=== PATIENT | female | born 1980 | race Caucasian/White ===

== ENCOUNTER 2016-12-10 17:38 | Emergency (ER) | payer MEDICAID ==
[2016-12-10 17:50] VITALS: TEMP 98.4
--- NOTE | 2016-12-10 18:22 | EDPHY ---
H & P Stated Complaint: heavy metal hinge fell down from door impacting l side of fave /lac/no loc Time Seen by Provider: 12/10/16 18:21 HPI/ROS: HPI CHIEF COMPLAINT: [ ] HISTORY OF PRESENT ILLNESS: [Need 4: Location, Duration, Severity, Quality, Context, Timing Modifying Factors, Associated S&S] Past Medical History: Past Surgical History: Social History: Family History: ROS REVIEW OF SYSTEMS: A comprehensive 10 point review of systems is otherwise negative aside from elements mentioned in the history of present illness. Exam Constitutional triage nursing summary reviewed, vital signs reviewed, awake/ alert. Eyes normal conjunctivae and sclera, EOMI, PERRLA. HENT normal inspection, atraumatic, moist mucus membranes, no epistaxis, neck supple/ no meningismus, no raccoon eyes. Respiratory clear to auscultation bilaterally, normal breath sounds, no respiratory distress, no wheezing. Cardiovascular rate normal, regular rhythm, no murmur, no edema, distal pulses normal. Gastrointestinal soft, non-tender, no rebound, no guarding, normal bowel sounds, no distension, no pulsatile mass. Genitourinary no CVA tenderness. Musculoskeletal no midline vertebral tenderness, full range of motion, no calf swelling, no tenderness of extremities, no meningismus, good pulses, neurovascularly intact. Skin pink, warm, & dry, no rash, skin atraumatic. Neurologic awake, alert and oriented x 3, AAOx3, moves all 4 extremities equally, motor intact, sensory intact, CN II-XII intact, normal cerebellar, normal vision, normal speech. Psychiatric normal mood/affect. Heme/Lymph/Immune no lymphadenopathy. Differential Diagnosis: Medical Decision Making: Re-evaluation: Source: Patient - Personal History LMP (Females 10-55): 22-28 Days Ago Current Tetanus/Diphtheria Vaccine: Yes - Medical/Surgical History Hx Asthma: No Hx Chronic Respiratory Disease: No Hx Diabetes: No Hx Cardiac Disease: No Hx Renal Disease: No Hx Cirrhosis: No Hx Alcoholism: No Hx HIV/AIDS: No Hx Splenectomy or Spleen Trauma: No Other PMH: leap procedure/oral surgery - Social History Smoking Status: Never smoked Constitutional: Initial Vital Signs Temperature (C) 36.9 C 12/10/16 17:46 Heart Rate 80 12/10/16 17:46 Respiratory Rate 20 12/10/16 17:46 Blood Pressure 101/68 12/10/16 17:46 O2 Sat (%) 97 12/10/16 17:46 O2 Delivery Mode Room Air Allergies/Adverse Reactions: Penicillins Allergy (Verified 12/10/16 17:45) Home Medications: Medication Instructions Recorded NK [No Known Home Meds] 12/10/16 Departure - Departure Referrals: NONE *PRIMARY CARE P,. [Primary Care Provider] - As per Instructions
--- NOTE | 2016-12-10 18:30 | EDPHY ---
H & P Stated Complaint: heavy metal hinge fell down from door impacting l side of fave /lac/no loc - Personal History LMP (Females 10-55): 22-28 Days Ago Current Tetanus/Diphtheria Vaccine: Yes - Medical/Surgical History Hx Asthma: No Hx Chronic Respiratory Disease: No Hx Diabetes: No Hx Cardiac Disease: No Hx Renal Disease: No Hx Cirrhosis: No Hx Alcoholism: No Hx HIV/AIDS: No Hx Splenectomy or Spleen Trauma: No Other PMH: leap procedure/oral surgery - Social History Smoking Status: Never smoked Time Seen by Provider: 12/10/16 18:21 HPI/ROS: CHIEF COMPLAINT: Head trauma HISTORY OF PRESENT ILLNESS: This patient is a 36 year old female who presents to the Emergency Department with trauma to her left forehead caused by a hydraulic door hinge falling and hitting her head approximately two hours prior to arrival. She states that she walked through the door when the hinge became loose, hitting her just above her left eyebrow, lacerating the skin. Denies LOC at the time of the event. She used "crazy glue" on the laceration to attempt to stop the bleeding, which she reports was effective. Upon arrival, she complains of feeling "out of it" since the injury. She has blurred vision. She also complains of mild left shoulder pain. She denies numbness, weakness, or severe headache. No pertinent medical history. REVIEW OF SYSTEMS: Aside from elements discussed in the HPI, a comprehensive 10-point review of systems was reviewed and is negative. PAST MEDICAL HISTORY: Denies. 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 Lives with her three children, oldest age 13. PHYSICAL EXAM: VITAL SIGNS: Reviewed by me; see NN. GENERAL: Well-developed, well-nourished, in no acute distress. HEENT: Head: Normocephalic; 1cm linear laceration just lateral to the left eye that has been glued, no bleeding. PERRL, EOMI, no nystagmus. Oropharynx: No trauma, normal occlusion. Neck: Nontender to palpation, no pain with range of motion, no adenopathy. CHEST: Nontender, no subcutaneous air palpable. LUNGS: Clear to auscultation bilaterally, breath sounds are equal. CARDIAC: Regular rate and rhythm, no rubs, murmurs or gallops. ABDOMEN: Soft, nontender, nondistended, bowel sounds normal. BACK: No CVA tenderness, no spinal tenderness. Tenderness to medial edge of left scapula, no abrasion. EXTREMITIES: No trauma noted, normal range of motion. NEURO: Alert and oriented, cranial nerves II through XII are intact. Motor strength 5 over 5 in all major muscle groups. Sensation intact to light touch. Normal gait. SKIN: Warm and dry, no rash. Portions of this note were transcribed by a behavioral medical director. I personally performed a history, physical exam, medical decision making, and confirmed accuracy of information the transcribed note. (Flor Mario) Constitutional: Initial Vital Signs Temperature (C) 36.9 C 12/10/16 17:46 Heart Rate 80 12/10/16 17:46 Respiratory Rate 20 12/10/16 17:46 Blood Pressure 101/68 12/10/16 17:46 O2 Sat (%) 97 12/10/16 17:46 O2 Delivery Mode Room Air Allergies/Adverse Reactions: Penicillins Allergy (Verified 12/10/16 17:45) Home Medications: Medication Instructions Recorded NK [No Known Home Meds] 12/10/16 Medical Decision Making Procedures: Laceration repair. Verbal consent was obtained from the patient. The 2.5 cm laceration on the left eyebrow was anesthetized using 1% lidocaine with epinephrine. The wound was irrigated with saline, draped and explored to its base with a gloved finger. There were no deep structures involved. The wound was repaired with 6 0 Prolene, 6 sutures. The wound repair was simple. The procedure was performed by myself. (Daily Cristina) ED Course/Re-evaluation: This normally healthy 36-year-old female presents following trauma to her left forehead with a small 1cm laceration glued by herself. She reports mild brain fog but otherwise declines focal neurological deficits. Her neuro exam is benign. GCS 15, no LOC at time of event. Given this, I discussed my recommendation that we do not proceed with CT imaging at this time. The patient is agreeable to this. Laceration repaired by Daily CAMPBELL (see separate procedure note). Follow repaired laceration was asked to see the patient again. She complains of increasing pain in the left posterior shoulder. On examination the patient has developed spasm of the trapezius on the left. She continues to have full range of motion at the shoulder. There is no bony abnormalities palpated. She does have tenderness and significant spasm over the left trapezius muscles. Patient was given ice pack and advised to use ibuprofen regularly. I do not believe she needs any further imaging studies. She otherwise looks well. I discussed closed head injury precautions with her, to which she expresses agreement and understanding. She will be discharged home in good condition. ( Flor Mario) Differential Diagnosis: Differential diagnosis for the patient's injury was considered including but not limited to head injury, sprain, contusion, abrasion, laceration, fracture, open fracture, or dislocation. (Flor Mario) - Data Points Medications Given: Discontinued Medications Hydrocodone Bitart/Acetaminophen ([place] 5/325mg Prepack#6) 1 btl TAKEHOME EDNOW ONE Stop: 12/10/16 21:04 Last Admin: 12/10/16 21:04 Dose: 1 btl Ondansetron HCl (Zofran Odt) 4 mg PO EDNOW ONE Stop: 12/10/16 19:29 Last Admin: 12/10/16 19:31 Dose: 4 mg Departure - Departure Disposition: Home, Routine, Self-Care Clinical Impression: Closed head injury Qualifiers: Encounter type: initial encounter Qualified Code(s): S09.90XA - Unspecified injury of head, initial encounter Forehead laceration Qualifiers: Encounter type: initial encounter Qualified Code(s): S01.81XA - Laceration without foreign body of other part of head, initial encounter Condition: Good Instructions: Care For Your Stitches (ED), Laceration (ED), Concussion (ED), Head Injury (ED), Post Concussion Syndrome (ED) Additional Instructions: 1. You been given closed-head injury instructions. You should stay with a responsible individual for the next 24 hours. Please return to the emergency department if you have any concerns regarding worsening head injury symptoms. 2. Follow-up with your primary care provider next week if you continue to have post concussive symptoms. If you do not have a regular PCP, we have referred you to our on-call provider. 3. Return to the Emergency Department to have your sutures removed in 5 days. Keep wound clean and dry. Clean suture line with a mixture of hydrogen peroxide and water. Apply a thin layer of antibiotic cream. Dress wound if desired. Suture removal in 5 days. Watch for signs of infection. No soaking wound in water. Showers are ok. No swimming until sutures are removed. 4. Return to the Emergency Department immediately if you experience one-sided weakness or numbness, severe headache, confusion, dizziness, vomiting, or other serious concerns. Referrals: Gregorio Mckeon MD [Medical Doctor] - As per Instructions
[2016-12-10] MEDS ORDERED: ONDANSETRON DISINTEGRATING 4 MG TAB PO ONE (19:28)
[2016-12-10] MEDS ORDERED: HYDROCOD/APAP 5/325 PREPACK#6 BTL TAKEHOME ONE ×2 (20:53→21:03)
[2016-12-10 21:03] VITALS: BP 108/66; PULSE 78; RESP 18; O2SAT 96
== END 2016-12-10 21:05 | disposition home or self-care (01) ==
PROC: 0HQ1XZZ Repair Face Skin, External Approach (ICD-10-PCS; principal; 2016-12-10)
DX: S05.32XA Ocular laceration without prolapse or loss of intraocular tissue, left eye, initial encounter (principal); W20.8XXA Other cause of strike by thrown, projected or falling object, initial encounter

== ENCOUNTER 2016-12-15 20:33 | Emergency (ER) | payer MEDICAID ==
[2016-12-15 20:38] VITALS: TEMP 98.4
--- NOTE | 2016-12-15 21:51 | EDPHY ---
H & P Stated Complaint: came in for SR, concerned about multiple ongoing symptoms Time Seen by Provider: 12/15/16 20:56 HPI/ROS: CHIEF COMPLAINT: Head injury, neck pain HISTORY OF PRESENT ILLNESS: 36-year-old female presents emergency department to have her sutures removed over her left eyebrow that were placed 5 days ago. Patient was walking in the door to her apartment complex when the metal box up on the door frame that slows the door down while closing fell onto her head. She had no loss of consciousness. Patient reports since this has happened she has had significant left-sided neck pain and difficulty looking to the left. She also reports feeling nauseous, blurred vision, difficulty focusing and she feels forgetful. Patient denies forceful vomiting. No history of head injury. No numbness or tingling in her arms. REVIEW OF SYSTEMS: A comprehensive 10 point review of systems is otherwise negative aside from elements mentioned in the history of present illness. Source: Patient Exam Limitations: No limitations - Personal History LMP (Females 10-55): Now Current Tetanus/Diphtheria Vaccine: Yes - Medical/Surgical History Hx Asthma: No Hx Chronic Respiratory Disease: No Hx Diabetes: No Hx Cardiac Disease: No Hx Renal Disease: No Hx Cirrhosis: No Hx Alcoholism: No Hx HIV/AIDS: No Hx Splenectomy or Spleen Trauma: No Other PMH: PSHx: leap procedure/oral surgery. PMHx: denies - Social History Smoking Status: Never smoked - Physical Exam Exam: Physical Exam Gen: Alert and Oriented, NAD HEENT: PERRL, moist mucous membranes NECK: Midline tenderness to palpation, left-sided trapezius swelling and spasm with tenderness, left-sided sternocleidomastoid tenderness CV: regular rate and regular rhythm PULM: CTAB, no wheezes ABDOMEN: soft, non tender to palpation, BS present BACK: No CVA tenderness NEURO: Neurologically grossly intact, normal cerebellar exam EXTREMITIES: normal appearing SKIN: no rash or break in skin on exposed skin PSYCH: answers questions appropriately. Constitutional: Initial Vital Signs Temperature (C) 36.9 C 12/15/16 20:34 Heart Rate 93 12/15/16 20:34 Respiratory Rate 17 12/15/16 20:34 Blood Pressure 110/87 H 12/15/16 20:34 O2 Sat (%) 97 12/15/16 20:34 O2 Delivery Mode Room Air Allergies/Adverse Reactions: Penicillins Allergy (Verified 12/10/16 17:45) Home Medications: Medication Instructions Recorded NK [No Known Home Meds] 12/10/16 Medical Decision Making - Diagnostics Imaging Results: Imaging Impressions Cervical Spine CT 12/15/16 21:49 Impression: 1. No acute posttraumatic abnormality identified. If there is persistent pain or neurologic deficit, consider MRI and/or flexion and extension views if clinically indicated. 2. Nodular thyroid. Thyroid ultrasound is recommended for further evaluation. Findings discussed with Kennedi Fox NP on 12/15/[address] at [address] 12/15/16 21:49 Impression: No acute intracranial findings. Findings discussed with Kennedi Fox NP 12/15/2016 at 22:21. Imaging: Discussed imaging studies w/ call out clerk Radiologist ED Course/Re-evaluation: CT head and C-spine obtained, both are which are negative for acute injury. Incidental findings of thyroid nodules were seen. Patient is aware of these and agrees to follow up with primary care physician for ultrasound. Patient is given Dr. Klein for concussion treatment. She is given return precautions for any new new symptoms, worsening symptoms or concerns. Differential Diagnosis: The differential diagnosis for the patient's head injury included but was not limited to concussion, skull fracture, intra-parenchymal contusion, subarachnoid , subdural and epidural hematoma. Departure - Departure Disposition: Home, Routine, Self-Care Clinical Impression: Post concussive syndrome, Multiple thyroid nodules Closed head injury Qualifiers: Encounter type: initial encounter Qualified Code(s): S09.90XA - Unspecified injury of head, initial encounter Cervical strain Qualifiers: Encounter type: initial encounter Qualified Code(s): S16.1XXA - Strain of muscle, fascia and tendon at neck level, initial encounter Condition: Good Instructions: Cervical Strain (ED), Head Injury (ED), Thyroid Nodules (ED), Post Concussion Syndrome (ED) Additional Instructions: Rest, ice or heat whichever feels better to your neck, take 400 mg of ibuprofen every 8 hours as needed for pain. Follow up with the concussion specialist at 1st available appointment, call in the morning to schedule this. Return to the emergency department for forceful vomiting, confusion, difficulty walking, seizure activity, any new symptoms or concerns. You had a normal CT scan of your cervical spine and brain. An incidental finding of some nodules on your thyroid was seen on CT scan. Follow-up with your primary care doctor for an ultrasound for further evaluation. Referrals: Ling Klein MD [Medical Doctor] - As per Instructions (concussion specialist ) Rocio Conte MD [Medical Doctor] - As per Instructions (Primary care doctor on-call)
[2016-12-15] MEDS ORDERED: ONDANSETRON 4MG PREPACK#2 BTL TAKEHOME ONE (23:02)
[2016-12-15 23:16] VITALS: BP 106/76; PULSE 68; RESP 16; O2SAT 94
== END 2016-12-15 23:10 | disposition home or self-care (01) ==
DX: S16.1XXA Strain of muscle, fascia and tendon at neck level, initial encounter (principal); S09.90XA Unspecified injury of head, initial encounter; F07.81 Postconcussional syndrome; G44.309 Post-traumatic headache, unspecified, not intractable; E04.1 Nontoxic single thyroid nodule; W20.8XXA Other cause of strike by thrown, projected or falling object, initial encounter